=== PATIENT | female | born 1945 | race African-American/Black ===

== ENCOUNTER 2018-09-20 07:11 | Day surgery (SDC) | payer MEDICARE ==
[2018-09-20 08:12] LABS: Basophils % (Auto) 0.8 % (0.0-1.8); Eosinophils # (Auto) 0.1 K/mm3 (0.0-0.4); Eosinophils % (Auto) 2.8 % (0.0-4.3); Hematocrit 34.8 % (30.3-42.9); Hemoglobin 11.7 gm/dl (10.1-14.3); Lymphocytes # (Auto) 1.6 K/mm3 (1.2-5.4); Lymphocytes % (Auto) 34.7 % (13.4-35.0); Mean Corpuscular HGB Conc 34 % (30-34); Mean Corpuscular Volume 93 fl (79-97); Monocytes # (Auto) 0.4 K/mm3 (0.0-0.8); Monocytes % (Auto) 9.2 % (0.0-7.3); Platelet Count 239 K/mm3 (140-440); Red Blood Count 3.76 M/mm3 (3.65-5.03); Red Cell Distribution Width 13.2 % (13.2-15.2)
[2018-09-20 08:23] LABS: INR 0.92 (0.87-1.13)
[2018-09-20 08:24] LABS: Partial Thromboplastin Time 24.2 Sec. (24.2-36.6)
[2018-09-20 08:25] LABS: BUN/Creatinine Ratio 18; Blood Urea Nitrogen 9 mg/dL (7-17); Calcium 8.8 mg/dL (8.4-10.2); Hemolysis Index 4
[2018-09-20] MEDS: NACL 0.9% 500 ML 500 ML IV SCH ×2 (08:53→10:21)
[2018-09-20] MEDS ORDERED: HEPARIN/NS 5000 UNIT/500ML(CATH LAB) 1,000 ML IR ONE (09:51)
[2018-09-20] MEDS: VERSED ONE ×2 (10:19→10:23)
[2018-09-20] MEDS: SUBLIMAZE ONE ×2 (10:19→10:23)
[2018-09-20] MEDS: XYLOCAINE 2% INFILTRATI ONE ×2 (10:20→10:24)
[2018-09-20] MEDS: HEPARIN 10,000 UNITS/10 ML ONE ×2 (10:20→10:26)
[2018-09-20] MEDS: CALAN ONE ×2 (10:20→10:26)
[2018-09-20] MEDS: NITROGLYCERIN SYRINGE 3 ML ONE ×2 (10:21→10:26)
--- NOTE | 2018-09-20 10:54 | Short Stay Summary ---
Short Stay Documentation Date of service: 09/20/18 - History H&P: obtained from office - Allergies and Medications Current Medications: Allergies No Known Allergies Allergy (Verified 09/20/18 07:47) Home Medications Medication Instructions Recorded Confirmed Last Taken Type Alendronate Sodium [Fosamax] 70 mg PO 1XW 09/20/18 09/20/18 09/19/18 History 70mg Aspirin EC [Aspirin Enteric Coated 81 mg PO DAILY 09/20/18 09/20/18 09/20/18 History TAB] 81mg Cetirizine HCl [Allergy Relief] 10 mg PO DAILY 09/20/18 09/20/18 09/19/18 History 10mg amLODIPine [Norvasc] 5 mg PO DAILY 09/20/18 09/20/18 09/20/18 History 5mg hydroCHLOROthiazide [HCTZ] 25 mg PO DAILY 09/20/18 09/20/18 09/19/18 History 25mg Active Medications Sodium Chloride (Nacl 0.9% 500 Ml) 500 mls @ 50 mls/hr IV DIRECT DARRELL Stop: 09/20/18 17:59 Last Admin: 09/20/18 10:21 Dose: 50 mls/hr Documented by: - Physical exam General appearance: no acute distress Integumentary: no rash HEENT: Atraumatic Lungs: Clear to auscultation Breasts: deferred Heart: Regular rate Gastrointestinal: normal Female Genitourinary: deferred Rectal Exam: deferred Extremities: no ischemia Neurological: Normal gait - Brief post op/procedure progress note Date of procedure: 09/20/18 Pre-op diagnosis: SOB Post-op diagnosis: same Procedure: LHC, LV gram Anesthesia: MAC Findings: see report Surgeon: CYNTHIA CHO Estimated blood loss: none Pathology: none Condition: stable - Hospital course Hospital course: uneventful - Disposition Condition at discharge: Good Disposition: [id number] TO HOME OR SELFCARE Short Stay Discharge Plan Activity: advance as tolerated Weight Bearing Status: Partial Weight Bearing Diet: low fat, low cholesterol, low salt Wound: keep clean and dry Follow up with: ROMULO ALLEN MD [Primary Care Provider] - 7 Days
--- NOTE | 2018-09-20 12:00 | Cardiac Catherization Report ---
LEFT HEART CATHETERIZATION ORDERING PHYSICIAN: Harlan Telles MD INDICATIONS FOR PROCEDURE: Shortness of breath and abnormal myocardial perfusion scan revealing a small reversible basal inferoseptal wall defect of mild intensity. PROCEDURES PERFORMED: 1. Selective left and right coronary angiography. 2. Left ventriculography. DESCRIPTION OF PROCEDURE: After obtaining the consent, the patient was draped using sterile technique. A 2% lidocaine was injected into the right wrist. A 5-[place] vascular sheath was inserted into the right radial artery. A 5-[place] JL3.5 catheter was used to selectively engage left coronary artery. A 5-[place] JR4 catheter was used to selectively engage right coronary artery. A 5-[place] JR4 catheter was used to hand inject the left ventriculogram. No complications occurred during the procedure. Hemostasis was achieved at the end of the procedure using manual pressure. SPECIMEN REMOVED: None. ESTIMATED BLOOD LOSS: Minimal. TOTAL SEDATION ADMINISTERED: 1 mg of IV Versed and 25 mcg of IV fentanyl. Physician patient [id number] sedation start time is 10:23 a.m. Physician patient sedation [id number] stop time is 10:35 a.m. Total sedation time was 12 minutes. FINDINGS: HEMODYNAMICS: Aortic pressure 120/77, LV systolic pressure 120 mmHg. LVEDP 15 mmHg. There was no significant gradient noted across left ventricular outflow tract. CARDIAC STRUCTURES: The left ventricle is normal in size and systolic function. The left ventricular ejection fraction is estimated between 65% and 70%. There is no regional wall motion abnormality detected. CORONARY ANATOMY: 1. This is a right dominant circulation. 2. The left main has mild luminal irregularities. The left anterior descending artery has mild to moderate diffuse nonobstructive luminal irregularities in the mid segment. There is a small caliber size first diagonal and second diagonal artery. The third diagonal artery is moderate in size. The fourth diagonal artery is small caliber. The old diagonal arteries are noted to be patent. 3. The left circumflex artery is patent. There is evidence of mild nonobstructive coronary artery disease noted throughout the left circumflex artery. 4. The right coronary artery is occluded in the midsegment. There are excellent collaterals from the left circulation filling the distal right coronary artery. There are also collaterals that are filling the distal via right to right supply. IMPRESSION: 1. Chronic total occlusion of the right coronary artery with excellent left to right as well as right to right collaterals filling the distal segment. Nonobstructive disease noted in the left coronary circulation. 2. Normal left ventricular size and systolic function with no regional wall motion abnormality. 3. LVEDP measured at 50 mmHg. RECOMMENDATIONS: Recommend to continue current medical therapy. JOB# [id number] OLIVIA/DAE
[2018-09-20 13:16] VITALS: BP 128/76
== END 2018-09-20 13:30 | disposition home or self-care (01) ==
LOC: CATHLABREC 07:11
PROVIDERS: ATTEND Internal Medicine Cardiovascular Disease
DX: I25.10 Atherosclerotic heart disease of native coronary artery without angina pectoris (principal); I10 Essential (primary) hypertension; Z79.899 Other long term (current) drug therapy; Z79.82 Long term (current) use of aspirin; Z79.01 Long term (current) use of anticoagulants
CPT/HCPCS: 36415; 80048; 85025; 85610; 85730; 93005; 93010; 93458; 99156; C1894; J1644; J2250; J3010; J7040; Q9967